=== PATIENT | male | born 1985 | race Caucasian/White ===

== ENCOUNTER 2022-11-10 15:13 | Outpatient (REF) | payer MEDICAID, SELFPAY ==
[2022-11-10 15:39] LABS: Abs Immature Grans 0.09 10^3/uL (0.0-0.06); Absolute Basophil Count 0.06 10^3/uL (0.0-0.2); Absolute Eosinophil Count 0.19 10^3/uL (0.0-0.7); Absolute Lymphocyte Count 2.83 10^3/uL (1.2-3.4); Absolute Monocyte Count 0.65 10^3/uL (0.1-0.8); Absolute Neutrophil Count 5.14 10^3/uL (1.2-6.7); Basophils % 0.7; Eosinophils % 2.1; HCT 41.1 % (40.0-50.0); HGB 13.8 g/dL (13.5-17.5); Lymphocytes % 31.6; MCH 29.2 pg (27.0-33.0); MCHC 33.6 % (32.0-36.0); MCV 87 fL (80-95); MPV 9.4 fL (8.0-11.0); Monocytes % 7.3; Neutrophils % 57.3; Platelet Count 362 10^3/uL (130-400); RBC 4.72 10^6/uL (4.36-5.78); RDW 13.7 % (11.8-14.1); RDW-SD 41.9 fL; WBC 8.96 10^3/uL (4.4-10.8)
[2022-11-10 15:59] LABS: ALT 28 U/L (16-63); AST 17 U/L (15-37); Alkaline Phosphatase 85 U/L (46-116); BUN 11 mg/dL (7-18); Bilirubin, Total 0.2 mg/dL (0.2-1.0); Calcium 9.2 mg/dL (8.5-10.1); Calculated LDL 186 mg/dL (<100); Chloride 106 mmol/L (98-107); Cholesterol 285 mg/dL (<200); Estimated GFR 100.03 (mL/min/1.73m2); Glucose 91 mg/dL (74-106); HDL Cholesterol 38 mg/dL (40-60); Potassium 4.6 mmol/L (3.5-5.1); Sodium 141 mmol/L (136-145); Total Protein 7.3 g/dL (6.4-8.2); Triglyceride 309 mg/dL (<150)
[2022-11-14 10:43] LABS: HIV-1/2 Ag & Ab Screen Negative (Negative)
[2022-11-14 10:49] LABS: Hepatitis C Ab w Rflx HCV PCR Negative (Negative)
== END 2022-11-10 15:14 | disposition home or self-care (01) ==
LOC: NCHCN 15:13
PROVIDERS: Visit Provider Nurse Practitioner Family
DX: F41.8 Other specified anxiety disorders (principal); F19.21 Other psychoactive substance dependence, in remission; F06.31 Mood disorder due to known physiological condition with depressive features; Z79.899 Other long term (current) drug therapy; Z13.220 Encounter for screening for lipoid disorders; Z11.4 Encounter for screening for human immunodeficiency virus [HIV]; Z11.59 Encounter for screening for other viral diseases
CPT/HCPCS: 80053; 80061; 86803; 87389; 84443; 85025

== ENCOUNTER 2022-12-06 12:04 | Emergency (ER) | payer MEDICAID, SELFPAY ==
[2022-12-06 12:12] VITALS: TEMP 36.7
--- NOTE | 2022-12-06 12:15 | DI.CT_ITS ---
Exam(s) CT LUMBAR SPINE WO EXAM: CT LUMBAR SPINE WO c CLINICAL HISTORY: midline pain at l4. TECHNIQUE: Imaging Protocol: Axial computed tomography images with coronal and sagittal reformatted images were created and reviewed COMPARISON: No exams were available for comparison FINDINGS: Bones: There are no impression fractures, listhesis, nor pars defects. There are no lytic osseous le sions evident. Posteriorly at L4 level there cortical irregularity on the posterior aspect of the facet joint right side of the inferior articular process on right side of L4. fragment bone at this level is possibly a fracture fragment or related to degenerative change. Nevertheless, this is located poste rior to the facet joint. This bone fragment measures 1 cm wide by 1.1 cm craniocaudal by 0.4 cm. Th ere is no offset of of the adjacent ipsilateral right facet joint at this level although there are mi ld facet arthropathy changes. INDIVIDUAL LEVELS: T12-L1:No disc herniation nor canal stenosis. Facet joints unremarkable. No foraminal stenosis. L1-2: No disc herniation nor canal stenosis. Facet joints unremarkable. No foraminal stenosis. L2-3: No disc herniation nor canal stenosis. Facet joints unremarkable. No Foraminal stenosis L3-4: Normal disc height. Posterior subligamentous annular bulging slightly indents the thecal sac. No dominant disc herniation. Central canal dimensions are lower normal. Facet joints unremarkable . No foraminal stenosis. L4-5: Normal disc height. There is annular bulging and there is a superimposed central-left paracen tral disc protrusion which extends posteriorly 4 millimeters indenting the thecal sac. This disc pro trusion is 11 millimeters wide. There is a suggestion of a partial left laminectomy defect at this l evel, possibly related to prior surgery at this level. Left facet joint unremarkable at this level. Fragmentation of the posterior aspect of the right facet joint is noted. This is possibly some post surgical are as described above. No significant foraminal stenosis evident at this level. L5-S1: No disc herniation or canal stenosis. No foraminal stenosis. Moderate facet arthropathy. The visualized sacroiliac joints and sacrum appear unremarkable. PARASPINAL SOFT TISSUES: Visualized paraspinal tissues appear unremarkable. IMPRESSION: 1. There is a fracture fragment off the posterior aspect of the inferior right articular process of L 4. There is no malalignment of the ipsilateral facet. No other fractures evident. 2. Posterolateral left disc bulge-protrusion at L4-5 level, as described above. Called by myself to ER physician. RADIATION DOSE DELIVERED: 1,330.93mGy.cm Total DLP DATA REPOSITORY: All CT scans at this facility are submitted to the National Radiology Data Registry (NRDR) Dose Index Registry (DIR) with the [employer] ([employer]). RADIATION OPTIMIZATION: All CT scans at this facility use at least one of these dose optimization te chniques: automated exposure control; mA and/or kV adjustment per patient size (includes targeted exa ms where dose is matched to clinical indication); or iterative reconstruction.
[2022-12-06] MEDS: predniSONE 20 MG TAB 60 MG PO (12:45)
[2022-12-06] MEDS: Ketorolac 30 MG/ML VIAL IM (12:46)
[2022-12-06] MEDS: Cyclobenzaprine 10 MG TAB PO (12:46)
[2022-12-06] MEDS: Acetaminophen 500 MG TAB 1000 MG PO (12:46)
[2022-12-06] MEDS: Lidocaine 5% Patch 1 PATCH TP (12:47)
--- NOTE | 2022-12-06 13:44 | W.ED.GENAD ---
Discharge Plan Disposition Patient Disposition: Home Condition: Good Discharge Details Clinical Impression: Back pain, Bulging lumbar disc, Fracture of lumbar vertebra without spinal cord injury Primary Care Provider: e[facility]nee,Local ED Provider: Malick King Home Meds and New Rx's Prescriptions: New cyclobenzaprine 10 mg tablet 10 mg PO TID Qty: 14 0RF lidocaine [Lidoderm] 5 % adhesive patch,medicated 1 patch Topical Q24H Qty: 15 0RF prednisone 50 mg tablet 50 mg PO DAILY Qty: 5 0RF No Action hydroxyzine HCl 50 mg tablet 50 mg PO BID Patient Comments: TAKE 1 TABLET BY MOUTH TWICE DAILY NEEDED lamotrigine 100 mg tablet 50 mg PO BID Patient Comments: TAKE 1/2 TABLET BY MOUTH TWICE DAILY desvenlafaxine succinate 100 mg tablet extended release 24 hr 100 mg PO DAILY Patient Comments: TAKE ONE TABLET BY MOUTH EVERY DAY Discharge Instructions Instructions: Back Pain (ED) Additional Instructions: At this time your signs and symptoms are clinically consistent with a back sprain. You do have evidence of a mild bulging disc at L4-L5, as well as a small crack/fracture fragment on the side of L4. This can cause significant pain and take a fair bit of time to heal. I expect 1 to 2 months for potential resolution. In the meantime do not lift anything greater than 5 pounds for the next 2 weeks. Avoid any significant vigorous physical activity. Perform easy gentle regular activities at home without any significant bending or lifting. Please take the steroids as directed. You have been given a prescription for Lidoderm patch. If your insurance does not cover this you can get [id number] Lidoderm patches at 4% which are almost just as effective. Please take the Flexeril as directed but do not take it when driving or operating any vehicles or heavy machinery, swimming, taking long baths, or operating firearms. Please use a heating pad as often as possible on your back. Perform daily gentle stretches on your back. Please continue to take the Tylenol and Motrin. You can take 1000 mg of Tylenol every 6 hours and 600 mg of ibuprofen every 6 hours. If you notice any worsening of your symptoms, or any new symptoms such as vomiting, diarrhea, fever, chills, shortness of breath, chest pain, numbness or tingling in your groin or legs, weakness in your legs, loss of control for your bowels or bladder, or fainting , please return immediately to the emergency department for reevaluation. Please follow up with your primary care provider as soon as possible for reassessment and reevaluation. As always, it was a pleasure participating in your medical care today. Stand Alone Forms: Work Release Medical Decision Making 37-year-old male with a past medical history of a BMI of 43, presents today for evaluation of back pain. 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 Over the next week and a half his back pain gradually worsened, worse when he transitions from a sitting to standing position. Worse with movement. He has taken Tylenol and Motrin without any significant improvement. Patient denies any saddle anesthesia, numbness or tingling in the groin, change in sensation when wiping. Patient denies any change in sensation during sexual intercourse, difficulty achieving or maintaining an erection or ejaculation, bowel or bladder incontinence, leakage, or retention. Patient denies any weakness in the lower extremities, atypical falls or imbalance. He denies IV or illicit drug use. He denies any focal trauma. No other complaints at this time. No other modifying factors. Physical exam demonstrates mild midline tenderness at L4. No signs or symptoms inside account representative of spinal cord impingement. Because of the midline tenderness though we will get CT image for further assessment. We will give Lidoderm patch, Flexeril, Toradol and Tylenol. We will monitor closely and reassess. [address] scan shows evidence of fracture fragment in the posterior aspect inferior right articular process of L4 but no malalignment, no evidence of an unstable fracture. There is a left disc bulge at the L4-L5 level as well. However clinically there is no evidence of canal impingement representing significant cord impingement. Clinically the patient looks well. He feels better after medications. At this time I do recommend avoiding any heavy lifting for the next few weeks. No lifting greater than 5 pounds in general. Recommend Flexeril, Lidoderm, and NSAIDs at home. Discussed red flags for which to return. Discussed the importance of continued monitoring of his symptoms including concerning symptoms which would merit immediate rereturn. Recommend close follow-up with his primary care provider for reassessment of his pain, as well as reassessment for healing. If he does not have improvement of his symptoms he may require further imaging including MRI on a nonemergent basis. I have extensively reviewed the treatment plan and discharge instructions with the patient. I have addressed all patient concerns at this time. The patient was made aware of what symptoms to monitor for that would warrant a return to the emergency department. Discussed the plan with the patient, they demonstrate verbal understanding and agreement with our assessment and plan at this time. The documentation in this chart was dictated using [email or web address] dictation software. Please excuse any dictation errors. FINDINGS: Bones: There are no impression fractures, listhesis, nor pars defects. There are no lytic osseous lesions evident. Posteriorly at L4 level there cortical irregularity on the posterior aspect of the facet joint right side of the inferior articular process on right side of L4. fragment bone at this level is possibly a fracture fragment or related to degenerative change. Nevertheless, this is located posterior to the facet joint. This bone fragment measures 1 cm wide by 1.1 cm craniocaudal by 0.4 cm. There is no offset of of the adjacent ipsilateral right facet joint at this level although there are mild facet arthropathy changes. INDIVIDUAL LEVELS: T12-L1:No disc herniation nor canal stenosis. Facet joints unremarkable. No foraminal stenosis. L1-2: No disc herniation nor canal stenosis. Facet joints unremarkable. No foraminal stenosis. L2-3: No disc herniation nor canal stenosis. Facet joints unremarkable. No Foraminal stenosis L3-4: Normal disc height. Posterior subligamentous annular bulging slightly indents the thecal sac. No dominant disc herniation. Central canal dimensions are lower normal. Facet joints unremarkable. No foraminal stenosis. L4-5: Normal disc height. There is annular bulging and there is a superimposed central-left paracentral disc protrusion which extends posteriorly 4 millimeters indenting the thecal sac. This disc protrusion is 11 millimeters wide. There is a suggestion of a partial left laminectomy defect at this level, possibly related to prior surgery at this level. Left facet joint unremarkable at this level. Fragmentation of the posterior aspect of the right facet joint is noted. This is possibly some postsurgical are as described above. No significant foraminal stenosis evident at this level. L5-S1: No disc herniation or canal stenosis. No foraminal stenosis. Moderate facet arthropathy. The visualized sacroiliac joints and sacrum appear unremarkable. PARASPINAL SOFT TISSUES: Visualized paraspinal tissues appear unremarkable. IMPRESSION: 1. There is a fracture fragment off the posterior aspect of the inferior right articular process of L4. There is no malalignment of the ipsilateral facet. No other fractures evident. 2. Posterolateral left disc bulge-protrusion at L4-5 level, as described above. HPI General Date/Time Provider Initiated Documentation: 12/06/22 12:09. HPI Narrative: 37-year-old male with a past medical history of a BMI of 43, presents today for evaluation of back pain. 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 Over the next week and a half his back pain gradually worsened, worse when he transitions from a sitting to standing position. Worse with movement. He has taken Tylenol and Motrin without any significant improvement. Patient denies any saddle anesthesia, numbness or tingling in the groin, change in sensation when wiping. Patient denies any change in sensation during sexual intercourse, difficulty achieving or maintaining an erection or ejaculation, bowel or bladder incontinence, leakage, or retention. Patient denies any weakness in the lower extremities, atypical falls or imbalance. He denies IV or illicit drug use. He denies any focal trauma. No other complaints at this time. No other modifying factors. Related Data Home Medications Medication Instructions Recorded Confirmed cyclobenzaprine 10 mg tablet 10 mg PO TID #14 tabs 12/06/22 desvenlafaxine succinate 100 mg 100 mg PO DAILY 12/06/22 12/06/22 tablet,extended release 24 hr hydroxyzine HCl 50 mg tablet 50 mg PO BID 12/06/22 12/06/22 lamotrigine 100 mg tablet 50 mg PO BID 12/06/22 12/06/22 lidocaine 5 % topical patch 1 patch topical Q24H #15 ea 12/06/22 (Lidoderm) prednisone 50 mg tablet 50 mg PO DAILY #5 tabs 12/06/22 Previous Rx's Medication Instructions Recorded cyclobenzaprine 10 mg tablet 10 mg PO TID #14 tabs 12/06/22 lidocaine 5 % topical patch 1 patch topical Q24H #15 ea 12/06/22 (Lidoderm) prednisone 50 mg tablet 50 mg PO DAILY #5 tabs 12/06/22 Allergies Allergy/AdvReac Type Severity Reaction Status Date / Time No Known Allergies Allergy Unverified 12/06/22 12:09 General Stated Complaint: Nk/Back Pain LINH: 4 Review of Systems All systems reviewed & are unremarkable except as noted in HPI and below PFSH All Active Problems (Updated 12/06/22 @ 15:29 by Malick King DO) Back pain (Acute) Bulging lumbar disc (Acute) Fracture of lumbar vertebra without spinal cord injury (Acute) Social History Smoking/Tobacco Use Status: Current every day Tobacco Type: cigarettes Smoking risk assessment performed?: Yes Alcohol Intake: never Substance use type: marijuana Do you feel safe at home: Yes Do you feel safe in your relationship?: Yes Exam Narrative Exam Narrative: 1.Const: Well-nourished, Well-developed, appearing stated age 2.Eyes: PERRL, no conjunctival injection, and symmetrical lids. 3.ENT: Atraumatic external nose and ears. Moist MM. Neck: Symmetric, trachea midline, No thyromegaly. 4.CVS: +S1/S2, No murmurs or gallops. Peripheral pulses 2+ and equal in all extremities. Brisk capillary refill in all extremities. 5.RESP: Unlabored respiratory effort. Clear to auscultation bilaterally. No wheezes rales or rhonchi 6.GI: Soft, Nontender/Nondistended, No hepatosplenomegaly. No guarding or rebound. 7.MSK: Normocephalic/Atraumatic, Extremities w/o deformity or ttp No cyanosis or clubbing, Normal movement of all extremities No midline tenderness to palpation over the CTS spine. There is mild midline tenderness at L4. Normal ROM in flexion, extension, side bend, and rotation. Patient has +5 out of 5 strength in the lower extremities in dorsiflexion and plantarflexion, knee flexion and extension, hip flexion and extension. Normal strength for dorsiflexion and plantar flexion of the great toe bilaterally. There is +2 over 2 dorsalis pedis pulses bilaterally. There is normal sensation to the skin with light touch at the foot, knee, and hip. Normal saddle sensation. Good sensation over the deep sural nerve area bilaterally. Rectal exam demonstrates good rectal tone with excellent susanne-rectal sensation. Reflexes are +2 over 4 in the patellar reflex bilaterally. +5 out of 5 strength in the medial, ulnar, radial nerve distribution bilaterally in the hands as well as intact light touch sensation to these dermatomes on the hands 8.Skin: Warm, Dry. No rashes or lesions. 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 Sensation grossly intact, no focal neurologic deficits. 10.Psych: (AAO) x3. Appropriate mood and affect Course Vital Signs Vital signs: Vital Signs Temperature 36.7 C 12/06/22 12:12 Temperature 36.7 C 12/06/22 12:12 Temperature Source Tympanic 12/06/22 12:12 Respiratory Effort Normal, Non-Labored 12/06/22 12:08
== END 2022-12-06 14:02 | disposition home or self-care (01) ==
PROVIDERS: Emergency Provider Student in an Organized Health Care Education/Training Program
DX: S32.048A Other fracture of fourth lumbar vertebra, initial encounter for closed fracture (principal); M51.36 Other intervertebral disc degeneration, lumbar region; X50.0XXA Overexertion from strenuous movement or load, initial encounter
CPT/HCPCS: 96372; 99284; 72131; J1885; J7512

== ENCOUNTER 2023-01-03 11:21 | Emergency (ER) | payer SELFPAY ==
[2023-01-03 11:24] VITALS: BP 131/80; PULSE 94; RESP 20; TEMP 37.1; O2SAT 96
--- NOTE | 2023-01-03 12:29 | ED.GENADUL_ITS ---
Discharge Plan Discharge Details Chief Complaint: Nk/Back Pain Primary Care Provider: Unknown,Unknown ED Provider: Pancho Morales Home Meds and New Rx's Prescriptions: No Action hydroxyzine HCl 50 mg tablet 50 mg PO BID Patient Comments: TAKE 1 TABLET BY MOUTH TWICE DAILY NEEDED lamotrigine 100 mg tablet 50 mg PO BID Patient Comments: TAKE 1/2 TABLET BY MOUTH TWICE DAILY desvenlafaxine succinate 100 mg tablet extended release 24 hr 50 mg PO DAILY Patient Comments: TAKE ONE TABLET BY MOUTH EVERY DAY cyclobenzaprine 10 mg tablet 10 mg PO TID Qty: 14 0RF Patient Comments: not taking lidocaine [Lidoderm] 5 % adhesive patch,medicated 1 patch Topical Q24H Qty: 15 0RF Patient Comments: not taking prednisone 50 mg tablet 50 mg PO DAILY Qty: 5 0RF Patient Comments: not taking fluoxetine 20 mg capsule 20 mg PO DAILY Patient Comments: TAKE ONE CAPSULE BY MOUTH EVERY DAY dextroamphetamine-amphetamine 25 mg capsule,extended release 24hr 25 mg PO DAILY Patient Comments: TAKE ONE CAPSULE BY MOUTH EVERY DAY Medical Decision Making I had initially signed up to evaluate this patient however he left prior to being seen. HPI General Date/Time Provider Initiated Documentation: 01/03/23 11:26 . HPI Narrative: Patient left prior to evaluation. Related Data Home Medications Medication Instructions Recorded Confirmed cyclobenzaprine 10 mg tablet 10 mg PO TID #14 tabs 12/06/22 desvenlafaxine succinate 100 mg 50 mg PO DAILY 12/06/22 01/03/23 tablet,extended release 24 hr hydroxyzine HCl 50 mg tablet 50 mg PO BID 12/06/22 12/06/22 lamotrigine 100 mg tablet 50 mg PO BID 12/06/22 01/03/23 lidocaine 5 % topical patch 1 patch topical Q24H #15 ea 12/06/22 (Lidoderm) prednisone 50 mg tablet 50 mg PO DAILY #5 tabs 12/06/22 dextroamphetamine-amphetamine ER 25 mg PO DAILY 01/03/23 01/03/23 25 mg 24hr capsule,extend release fluoxetine 20 mg capsule 20 mg PO DAILY 01/03/23 01/03/23 Previous Rx's Medication Instructions Recorded cyclobenzaprine 10 mg tablet 10 mg PO TID #14 tabs 12/06/22 lidocaine 5 % topical patch 1 patch topical Q24H #15 ea 12/06/22 (Lidoderm) prednisone 50 mg tablet 50 mg PO DAILY #5 tabs 12/06/22 Allergies Allergy/AdvReac Type Severity Reaction Status Date / Time No Known Allergies Allergy Unverified 01/03/23 11:28 General Stated Complaint: Nk/Back Pain LINH: 4 PFSH All Active Problems (Updated 12/06/22 @ 15:29 by Malick King DO) Back pain (Acute) Bulging lumbar disc (Acute) Fracture of lumbar vertebra without spinal cord injury (Acute) Social History Smoking/Tobacco Use Status: Current every day Tobacco Type: cigarettes Smoking risk assessment performed?: Yes Alcohol Intake: never Drug use: Occasionally Substance use type: marijuana Do you feel safe at home: Yes Do you feel safe in your relationship?: Yes Course Vital Signs Vital signs: Vital Signs Temperature 37.1 C 01/03/23 11:24 Pulse 94 H 01/03/23 11:24 Respiratory Rate 20 01/03/23 11:24 Blood Pressure 131/80 01/03/23 11:24 Pulse Oximetry 96 01/03/23 11:24 Temperature 37.1 C 01/03/23 11:24 Temperature Source Oral 01/03/23 11:24 Pulse 94 H 01/03/23 11:24 Respiratory Rate 20 01/03/23 11:24 Respiratory Effort Normal 01/03/23 11:27 Blood Pressure 131/80 01/03/23 11:24 Blood Pressure Position Sitting 01/03/23 11:24 Pulse Oximetry 96 01/03/23 11:24 Oxygen Delivery Method Room Air 01/03/23 11:24 Oxygen Flow Rate 0 01/03/23 11:24 Pain Level 5 01/03/23 11:45
[2023-01-03 12:30] VITALS: BP 143/82; PULSE 90; RESP 20; O2SAT 92
--- NOTE | 2023-01-03 13:49 | ED.GENADUL_ITS ---
Discharge Plan Discharge Details Chief Complaint: Nk/Back Pain Primary Care Provider: Unknown,Unknown ED Provider: Pancho Morales Home Meds and New Rx's Prescriptions: No Action hydroxyzine HCl 50 mg tablet 50 mg PO BID Patient Comments: TAKE 1 TABLET BY MOUTH TWICE DAILY NEEDED lamotrigine 100 mg tablet 50 mg PO BID Patient Comments: TAKE 1/2 TABLET BY MOUTH TWICE DAILY desvenlafaxine succinate 100 mg tablet extended release 24 hr 50 mg PO DAILY Patient Comments: TAKE ONE TABLET BY MOUTH EVERY DAY cyclobenzaprine 10 mg tablet 10 mg PO TID Qty: 14 0RF Patient Comments: not taking lidocaine [Lidoderm] 5 % adhesive patch,medicated 1 patch Topical Q24H Qty: 15 0RF Patient Comments: not taking prednisone 50 mg tablet 50 mg PO DAILY Qty: 5 0RF Patient Comments: not taking fluoxetine 20 mg capsule 20 mg PO DAILY Patient Comments: TAKE ONE CAPSULE BY MOUTH EVERY DAY dextroamphetamine-amphetamine 25 mg capsule,extended release 24hr 25 mg PO DAILY Patient Comments: TAKE ONE CAPSULE BY MOUTH EVERY DAY Medical Decision Making Patient left the emergency department without being seen. HPI General Date/Time Provider Initiated Documentation: 01/03/23 11:26 . Related Data Home Medications Medication Instructions Recorded Confirmed cyclobenzaprine 10 mg tablet 10 mg PO TID #14 tabs 12/06/22 desvenlafaxine succinate 100 mg 50 mg PO DAILY 12/06/22 01/03/23 tablet,extended release 24 hr hydroxyzine HCl 50 mg tablet 50 mg PO BID 12/06/22 12/06/22 lamotrigine 100 mg tablet 50 mg PO BID 12/06/22 01/03/23 lidocaine 5 % topical patch 1 patch topical Q24H #15 ea 12/06/22 (Lidoderm) prednisone 50 mg tablet 50 mg PO DAILY #5 tabs 12/06/22 dextroamphetamine-amphetamine ER 25 mg PO DAILY 01/03/23 01/03/23 25 mg 24hr capsule,extend release fluoxetine 20 mg capsule 20 mg PO DAILY 01/03/23 01/03/23 Previous Rx's Medication Instructions Recorded cyclobenzaprine 10 mg tablet 10 mg PO TID #14 tabs 12/06/22 lidocaine 5 % topical patch 1 patch topical Q24H #15 ea 12/06/22 (Lidoderm) prednisone 50 mg tablet 50 mg PO DAILY #5 tabs 12/06/22 Allergies Allergy/AdvReac Type Severity Reaction Status Date / Time No Known Allergies Allergy Unverified 01/03/23 11:28 General Stated Complaint: Nk/Back Pain LINH: 4 PFSH All Active Problems (Updated 12/06/22 @ 15:29 by Malick King DO) Back pain (Acute) Bulging lumbar disc (Acute) Fracture of lumbar vertebra without spinal cord injury (Acute) Social History Smoking/Tobacco Use Status: Current every day Tobacco Type: cigarettes Smoking risk assessment performed?: Yes Alcohol Intake: never Drug use: Occasionally Substance use type: marijuana Do you feel safe at home: Yes Do you feel safe in your relationship?: Yes Course Vital Signs Vital signs: Vital Signs Temperature 37.1 C 01/03/23 11:24 Pulse 94 H 01/03/23 11:24 Respiratory Rate 20 01/03/23 11:24 Blood Pressure 131/80 01/03/23 11:24 Pulse Oximetry 96 01/03/23 11:24 Temperature 37.1 C 01/03/23 11:24 Temperature Source Oral 01/03/23 11:24 Pulse 90 01/03/23 12:30 Respiratory Rate 20 01/03/23 12:30 Respiratory Effort Normal 01/03/23 11:27 Blood Pressure 143/82 H 01/03/23 12:30 Blood Pressure Position Sitting 01/03/23 11:24 Pulse Oximetry 92 01/03/23 12:30 Oxygen Delivery Method Room Air 01/03/23 12:30 Oxygen Flow Rate 0 01/03/23 12:30 Pain Level 6 01/03/23 12:30
== END 2023-01-03 12:38 | disposition left against medical advice (07) ==
PROVIDERS: Emergency Provider Emergency Medicine
DX: Z53.21 Procedure and treatment not carried out due to patient leaving prior to being seen by health care provider (principal)
CPT/HCPCS: 80048; 85652; 87798; 85025; 86140; 86618